=== PATIENT | female | born 1980 | race Caucasian/White ===

== ENCOUNTER 2017-01-03 08:22 | Emergency (ER) | payer OTHER ==
[~2017-01-03] VITALS: Ht 167.6 cm; Wt 79.0 kg
[~2017-01-03 08:22] MED LIST: ALBUTEROL SULF8.5 GM IH; AUGMENTIN875 MG PO; Anusol HC,Proctozone PR; CATAPRES0.1 MG PO; DIFLUCAN150 MG PO; ENDOCET 5-3251 EACH PO; FLEXERIL5 MG PO; KEFLEX500 MG PO; LASIX20 MG PO; Levothroid,Synthroid PO; MOTRIN600 MG PO; MOTRIN800 MG PO; Motrin PO; Mycostatin PO; Omnicef PO; PREDNISONE10 M1 PO; PREDNISONE20 MG PO; PROMETHAZINE HC25 M1 PO; PROVENTIL,2.5 MG/3 M IH; ROBITUSSIN AC,T10 ML PO; ROXICODONE5 MG PO; SYNTHROID; SYNTHROID175 MCG PO; TORADOL10 MG PO; TRAZODONE HCL50 MG PO; ZOFRAN ODT4 MG PO
[2017-01-03] MEDS ORDERED: MOTRIN600 MG PO (10:27)
[2017-01-03] MEDS ORDERED: ZOFRAN ODT8 MG PO (10:27)
[2017-01-03 10:44] VITALS: BP 118/85
== END 2017-01-03 10:45 | disposition home or self-care (01) ==
LOC: EME 08:22
DX: R51 Headache (principal); E03.9 Hypothyroidism, unspecified; F17.200 Nicotine dependence, unspecified, uncomplicated
CPT/HCPCS: 70450; 99281; 99285; J0780; J1100; J1885; J7030

== ENCOUNTER 2018-01-02 22:56 | Emergency (ER) | payer OTHER ==
[~2018-01-02] VITALS: Ht 167.6 cm; Wt 91.5 kg
[~2018-01-02 22:56] MED LIST changes: +ZOFRAN ODT8 MG PO
[2018-01-02 23:04] VITALS: BP 99/65
[2018-01-02 23:28] LABS: HEMATOCRIT 38.9 % (36.0-46.0); HEMOGLOBIN 12.9 G/DL (11.9-15.5); MCH 28.5 PG (29.0-34.0); MCHC 33.2 G/DL (30.0-36.0); MCV 85.9 FL (83-99); PLATELET COUNT 221 K/uL (156-360); RBC DIS.WIDTH-CV 12.7 % (11.8-14.6); RBC DIS.WIDTH-SD 39.6 % (39-53); RED BLOOD COUNT 4.53 M/uL (3.80-5.20); WHITE BLOOD COUNT 6.7 K/uL (4.1-10.2)
[2018-01-02 23:38] LABS: CHLORIDE 110 mEq/L (99-109); SODIUM 142 mEq/L (136-147)
[2018-01-02 23:39] LABS: GLUCOSE 86 mg/dL (70-99)
[2018-01-02 23:43] LABS: CREATININE 0.7 mg/dL (0.6-1.3); GFR ESTIMATE (CALCULATED) > 59 mL/min/
[2018-01-02 23:44] LABS: UREA NITROGEN (BUN) 4 mg/dL (9-23)
[2018-01-02 23:47] LABS: TROP-I INTERPRETATION NEGATIVE; TROPONIN-I < 0.01 ng/mL (0.0-0.30)
== END 2018-01-03 03:16 | disposition left against medical advice (07) ==
LOC: EME 22:56
DX: R60.9 Edema, unspecified (principal); R35.0 Frequency of micturition; R07.89 Other chest pain; E03.9 Hypothyroidism, unspecified; F17.200 Nicotine dependence, unspecified, uncomplicated; Z53.20 Procedure and treatment not carried out because of patient's decision for unspecified reasons
CPT/HCPCS: 71046; 80048; 83880; 84484; 85027; 93005

== ENCOUNTER 2018-01-16 00:02 | Emergency (ER) | payer OTHER ==
[~2018-01-16] VITALS: Ht 167.6 cm; Wt 88.6 kg
[2018-01-16 00:58] LABS: HEMATOCRIT 37.7 % (36.0-46.0); HEMOGLOBIN 12.5 G/DL (11.9-15.5); MCH 28.9 PG (29.0-34.0); MCHC 33.2 G/DL (30.0-36.0); MCV 87.3 FL (83-99); PLATELET COUNT 228 K/uL (156-360); RBC DIS.WIDTH-CV 13.9 % (11.8-14.6); RBC DIS.WIDTH-SD 44.3 % (39-53); RED BLOOD COUNT 4.32 M/uL (3.80-5.20); WHITE BLOOD COUNT 7.1 K/uL (4.1-10.2)
[2018-01-16 01:06] LABS: ALBUMIN 4.1 g/dL (3.2-4.8); CHLORIDE 107 mEq/L (99-109); POTASSIUM 2.9 mEq/L (3.7-5.4); SODIUM 143 mEq/L (136-147)
[2018-01-16 01:08] LABS: GLUCOSE 94 mg/dL (70-99); TOTAL PROTEIN 7.1 g/dL (6.4-8.3)
[2018-01-16 01:10] LABS: TOTAL BILIRUBIN 0.3 mg/dL (0.0-1.0)
[2018-01-16 01:12] LABS: ALKALINE PHOSPHATASE 81 IU/L (3-129); CREATININE 0.8 mg/dL (0.6-1.3); GFR ESTIMATE (CALCULATED) > 59 mL/min/
[2018-01-16 01:13] LABS: UREA NITROGEN (BUN) 5 mg/dL (9-23)
[2018-01-16 01:14] LABS: AST (GOT) 16 IU/L (2-34)
[2018-01-16 01:15] LABS: ALT (GPT) 16 IU/L (3-49)
[2018-01-16 01:22] LABS: QUANTITATIVE HCG < 4.0 MIU/ML
[2018-01-16 04:25] LABS: APPEARANCE CLEAR ((CLEAR)); BILIRUBIN NEGATIVE; BLOOD LARGE; COLOR YELLOW ((YELLOW)); GLUCOSE (STRIP) NEGATIVE; KETONES NEGATIVE; LEUKOCYTES NEGATIVE; NITRITE NEGATIVE; PROTEIN (STRIP) NEGATIVE; SPECIFIC GRAVITY 1.008 (1.000-1.030); UROBILINOGEN 0.2 MG/DL (0.2-1.0)
[2018-01-16 04:28] LABS: BACTERIA RARE /HPF; EPITHELIAL CELLS RARE /HPF; MUCUS TRACE /LPF; RED BLOOD CELLS 0-5 /HPF (0-5); UCUL ADDED? NO; WHITE BLOOD CELLS 0-5 /HPF (0-5)
[2018-01-16 05:18] LABS: LIPASE < 3.0 U/L (1.0-51.0)
[2018-01-16] MEDS ORDERED: ZOFRAN4 MG PO (05:40)
[2018-01-16 06:38] VITALS: BP 117/82
[2018-01-16 08:30] LABS: THYROTROPIN (TSH) 36.9 MIU/L (0.4-5.5)
== END 2018-01-16 06:39 | disposition home or self-care (01) ==
LOC: EME 00:02
DX: R51 Headache (principal); E87.6 Hypokalemia; E86.0 Dehydration; R31.9 Hematuria, unspecified; R94.6 Abnormal results of thyroid function studies; E03.9 Hypothyroidism, unspecified; F17.200 Nicotine dependence, unspecified, uncomplicated; Z88.6 Allergy status to analgesic agent
CPT/HCPCS: 80053; 81003; 83690; 84439; 84443; 84702; 85027; 87651 90; 99281; 99285; J3030; Q0169